=== PATIENT | female | born 1995 | race Caucasian/White ===

== ENCOUNTER 2018-02-07 19:43 | Inpatient (IN) | payer MEDICAID ==
[~2018-02-07] VITALS: Ht 157.5 cm; Wt 64.5 kg
[2018-02-07] MEDS ORDERED: NALOXONE 1 MG/ML, 2ML ONE (19:51)
[2018-02-07] MEDS ORDERED: DEXTROSE 50%, 50ML SYRINGE ONE (19:52)
[2018-02-07] MEDS ORDERED: NALOXONE 0.4 MG/ML, 1ML IVPush ONE (20:00)
[2018-02-07] MEDS ORDERED: SODIUM CHLORIDE 0.9% 1,000ML IVBOLUS ONE ×2 (20:00→22:00)
[2018-02-07] MEDS ORDERED: DEXTROSE 50%, 50ML SYRINGE IVPush ONE (20:00)
[2018-02-07 20:14] LABS: MEAN CORPUSCULAR HEMOGLOBIN 27.5 pg (27.0-34.8); MEAN CORPUSCULAR HGB CONC 31.8 g/dL (32.4-35.8); MEAN CORPUSCULAR VOLUME 86.6 fL (80-100); MEAN PLATELET VOLUME 10.8 fL (7.4-10.4); PLATELET COUNT 222 x10^3/uL (130-400); RED BLOOD COUNT 5.43 x10^6/uL (3.82-5.3); RED CELL DISTRIBUTION WIDTH 14.5 % (9.6-15.2)
[2018-02-07] MEDS ORDERED: PLEASE ENTER HEIGHT AND WEIGHT MC SCH (20:30)
[2018-02-07 20:54] LABS: MD YES
[2018-02-07 20:57] LABS: BAND#(MANUAL) 0.77 x10^3/uL; BANDS%(MANUAL) 3 % (0-7); LYMPH#(MANUAL) 1.28 x10^3/uL (1-6.1); LYMPHS% (MANUAL) 5 % (22-44); METAMYELOCYTES# (MANUAL) 0.51 x10^3/uL (0-0); METAMYELOCYTES% (MANUAL) 2 % (0-1); MONOS#(MANUAL) 1.28 x10^3/uL (0.3-2.7); MONOS% (MANUAL) 5 % (2-9); OVALOCYTES 1+; POLYCHROMASIA 1+; REACTIVE LYMPHS # (MANUAL) 0.51 x10^3/uL (0-0); REACTIVE LYMPHS % (MANUAL) 2 % (0-0); SEG#(MANUAL) 21.25 x10^3/uL (1.8-8); SEGS% (MANUAL) 83 % (42-75)
[2018-02-07 20:58] LABS: <PLATELET ESTIMATE> ADEQUATE; HYPOCHROMIA 1+; LARGE PLATELETS 1+; SMUDGE CELLS 1+
[2018-02-07 21:44] LABS: ALANINE AMINOTRANSFERASE 418 U/L (12-78); ALBUMIN 2.7 g/dL (3.4-5.0); CHLORIDE 107 mmol/L (98-107)
[2018-02-07 21:46] LABS: CALCIUM 7.5 mg/dL (8.5-10.1)
[2018-02-07 21:47] LABS: ALKALINE PHOSPHATASE 280 U/L (45-117); BILIRUBIN,TOTAL 2.1 mg/dL (0.2-1.0); CREATININE 2.59 mg/dL (0.55-1.02)
[2018-02-07 21:48] LABS: ANION GAP 9 mmol/L (5-15); TOTAL PROTEIN 7.7 g/dL (6.4-8.2)
[2018-02-07] MEDS: SODIUM CHLORIDE 0.9% 1,000 ML IV SCH (22:21)
[2018-02-07] MEDS ORDERED: ONDANSETRON ODT 4 MG PO PRN (22:30)
[2018-02-07] MEDS ORDERED: PROMETHAZINE 25 MG/ML, 1ML IM PRN (22:30)
[2018-02-07] MEDS ORDERED: ONDANSETRON 2MG/ML, 2ML IVPush PRN (22:30)
[2018-02-07] MEDS ORDERED: NALOXONE 0.4 MG/ML, 1ML IVPush PRN (22:30)
[2018-02-07] MEDS ORDERED: ACETAMINOPHEN 325 MG TABLET PO PRN (22:30)
[2018-02-08] VITALS (7 sets, daily range): BP systolic 91–130; BP diastolic 61–86
[2018-02-08] MEDS ORDERED: ENOXAPARIN 30 MG/0.3 ML SQ SCH (00:30)
[2018-02-08] MEDS: POTASSIUM CHLORIDE 20 MEQ, MAGNESIUM SULFATE 2 GM, THIAMINE 100 MG, MVI ADULT 10 ML, FO... IV SCH (00:54)
[2018-02-08] MEDS: SODIUM CHLORIDE 0.9% 1,000 ML IV SCH ×3 (03:21→16:00)
[2018-02-08 03:38] LABS: CULTURE INDICATED? YES; MICROSCOPIC INDICATED
[2018-02-08 03:45] LABS: AMPHETAMINE SCREEN, URINE Negative (Negative); BARBITURATE SCREEN, URINE Negative (Negative); BENZODIAZEPINE SCREEN, URINE Negative (Negative); CANNABINOID SCREEN, URINE Negative (Negative); COCAINE SCREEN, URINE Negative (Negative); METHADONE SCREEN, URINE Negative (Negative); OPIATE SCREEN, URINE Positive (Negative)
[2018-02-08 05:40] LABS: MEAN CORPUSCULAR HEMOGLOBIN 28.1 pg (27.0-34.8); MEAN CORPUSCULAR VOLUME 85.3 fL (80-100); MEAN PLATELET VOLUME 11.1 fL (7.4-10.4); PLATELET COUNT 168 x10^3/uL (130-400); RED BLOOD COUNT 4.82 x10^6/uL (3.82-5.3); RED CELL DISTRIBUTION WIDTH 14.7 % (9.6-15.2)
[2018-02-08 05:50] LABS: ALBUMIN 3.1 g/dL (3.4-5.0); ANION GAP 11 mmol/L (5-15); CALCIUM 7.2 mg/dL (8.5-10.1); CHLORIDE 111 mmol/L (98-107)
[2018-02-08 05:54] LABS: ALANINE AMINOTRANSFERASE 341 U/L (12-78); ALKALINE PHOSPHATASE 197 U/L (45-117); BILIRUBIN,TOTAL 1.8 mg/dL (0.2-1.0); TOTAL PROTEIN 5.9 g/dL (6.4-8.2)
[2018-02-08 06:16] LABS: BASOPHILS # (AUTO) 0.01 x10^3/uL (0-0.3); BASOPHILS % (AUTO) 0 % (0-1); EOSINOPHILS % (AUTO) 0 % (1-7); LYMPHOCYTES % (AUTO) 6 % (22-44); MD SCAN; MONOCYTES # (AUTO) 1.71 x10^3/uL (0-1.4); MONOCYTES % (AUTO) 8 % (2-9); NEUTROPHILS # (AUTO) 18.45 x10^3/uL (1.8-8.0); NEUTROPHILS % (AUTO) 86 % (42-75)
[2018-02-08] MEDS ORDERED: SODIUM CHLORIDE 0.9% 1,000 ML IV SCH (22:21)
[2018-02-09 01:19] VITALS: BP 123/83
[2018-02-09] MEDS: POTASSIUM CHLORIDE 20 MEQ, MAGNESIUM SULFATE 2 GM, THIAMINE 100 MG, MVI ADULT 10 ML, FO... IV SCH ×2 (01:23→23:09)
[2018-02-09] MEDS: ENOXAPARIN 40 MG/0.4 ML SQ SCH (01:25)
[2018-02-09 05:51] LABS: BASOPHILS # (AUTO) 0.03 x10^3/uL (0-0.3); BASOPHILS % (AUTO) 0 % (0-1); EOSINOPHILS % (AUTO) 0 % (1-7); LYMPHOCYTES # (AUTO) 1.57 x10^3/uL (1-6.1); LYMPHOCYTES % (AUTO) 12 % (22-44); MD NO; MEAN CORPUSCULAR HEMOGLOBIN 27.4 pg (27.0-34.8); MEAN CORPUSCULAR HGB CONC 32.3 g/dL (32.4-35.8); MONOCYTES # (AUTO) 1.02 x10^3/uL (0-1.4); MONOCYTES % (AUTO) 8 % (2-9); NEUTROPHILS # (AUTO) 10.27 x10^3/uL (1.8-8.0); NEUTROPHILS % (AUTO) 80 % (42-75); PLATELET COUNT 148 x10^3/uL (130-400); RED BLOOD COUNT 4.57 x10^6/uL (3.82-5.3); RED CELL DISTRIBUTION WIDTH 14.8 % (9.6-15.2)
[2018-02-09 06:03] LABS: CHLORIDE 119 mmol/L (98-107)
[2018-02-09 06:13] LABS: ALANINE AMINOTRANSFERASE 224 U/L (12-78); ALBUMIN 3.2 g/dL (3.4-5.0); ALKALINE PHOSPHATASE 173 U/L (45-117); ANION GAP 10 mmol/L (5-15); BILIRUBIN,TOTAL 1.2 mg/dL (0.2-1.0); CREATININE 1.32 mg/dL (0.55-1.02); TOTAL PROTEIN 5.9 g/dL (6.4-8.2)
[2018-02-09 07:42] VITALS: BP 114/77
[2018-02-09 12:06] LABS: THYROID STIMULATING HORMONE 2.22 mIU/L (0.358-3.740)
[2018-02-09 13:57] VITALS: BP 125/81
[2018-02-09] MEDS: LURASIDONE 20 MG TABLET PO SCH (17:24)
[2018-02-09 17:47] LABS: TROPONIN I 0.111 ng/mL (0.000-0.045)
[2018-02-09 18:32] VITALS: BP 119/77
[2018-02-09] MEDS ORDERED: TRAZ5POW PEG (21:07)
[2018-02-09] MEDS ORDERED: HYDR25PO PO (21:10)
[2018-02-09] MEDS ORDERED: TRAZ-137 PO (22:16)
[2018-02-09] MEDS ORDERED: HYDR25CA94 PO (22:17)
[2018-02-09 23:40] LABS: TROPONIN I 0.102 ng/mL (0.000-0.045)
[2018-02-10 01:19] VITALS: BP 121/82
[2018-02-10] MEDS: ENOXAPARIN 40 MG/0.4 ML SQ SCH (01:20)
[2018-02-10 06:04] LABS: TROPONIN I 0.087 ng/mL (0.000-0.045)
[2018-02-10 07:28] VITALS: BP 120/83
[2018-02-10] MEDS ORDERED: ERGOCALCIFEROL 50,000 UNIT CAPSULE PO SCH (08:00)
[2018-02-10] MEDS: CEFTRIAXONE 1,000 MG in SODIUM CHLORIDE 0.9% 50 ML IV SCH (10:27)
[2018-02-10 13:10] VITALS: BP 114/77
[2018-02-10] MEDS: LURASIDONE 20 MG TABLET PO SCH (16:56)
[2018-02-10] MEDS ORDERED: SENNA/DOCUSATE TABLET PO PRN (17:00)
[2018-02-10 20:22] VITALS: BP 121/82
[2018-02-10] MEDS: TRAZODONE 50MG TABLET PO PRN (20:23)
[2018-02-11] MEDS: ENOXAPARIN 40 MG/0.4 ML SQ SCH (00:10)
[2018-02-11] MEDS: POTASSIUM CHLORIDE 20 MEQ, MAGNESIUM SULFATE 2 GM, THIAMINE 100 MG, MVI ADULT 10 ML, FO... IV SCH (00:11)
[2018-02-11 02:30] VITALS: BP 90/56
[2018-02-11 07:00] VITALS: BP 101/66
[2018-02-11] MEDS: CEFTRIAXONE 1,000 MG in SODIUM CHLORIDE 0.9% 50 ML IV SCH (10:03)
[2018-02-11 12:50] VITALS: BP 111/72
[2018-02-11] MEDS: LURASIDONE 20 MG TABLET PO SCH (17:16)
[2018-02-11 19:27] VITALS: BP 103/61
[2018-02-11] MEDS: TRAZODONE 50MG TABLET PO PRN (21:31)
[2018-02-12] MEDS: ENOXAPARIN 40 MG/0.4 ML SQ SCH (00:30)
[2018-02-12 01:04] VITALS: BP 104/67
[2018-02-12] MEDS: POTASSIUM CHLORIDE 20 MEQ, MAGNESIUM SULFATE 2 GM, THIAMINE 100 MG, MVI ADULT 10 ML, FO... IV SCH (01:26)
[2018-02-12 05:58] LABS: BASOPHILS # (AUTO) 0.04 x10^3/uL (0-0.3); BASOPHILS % (AUTO) 1 % (0-1); EOSINOPHILS # (AUTO) 0.13 x10^3/uL (0-0.8); EOSINOPHILS % (AUTO) 2 % (1-7); LYMPHOCYTES # (AUTO) 2.34 x10^3/uL (1-6.1); LYMPHOCYTES % (AUTO) 30 % (22-44); MD NO; MEAN CORPUSCULAR HEMOGLOBIN 27.5 pg (27.0-34.8); MEAN CORPUSCULAR HGB CONC 33.3 g/dL (32.4-35.8); MEAN CORPUSCULAR VOLUME 82.7 fL (80-100); MONOCYTES # (AUTO) 0.68 x10^3/uL (0-1.4); MONOCYTES % (AUTO) 9 % (2-9); NEUTROPHILS # (AUTO) 4.53 x10^3/uL (1.8-8.0); NEUTROPHILS % (AUTO) 59 % (42-75); PLATELET COUNT 154 x10^3/uL (130-400); RED BLOOD COUNT 5.09 x10^6/uL (3.82-5.3); RED CELL DISTRIBUTION WIDTH 14.4 % (9.6-15.2)
[2018-02-12 06:11] LABS: ANION GAP 10 mmol/L (5-15); CALCIUM 7.5 mg/dL (8.5-10.1); CHLORIDE 114 mmol/L (98-107)
[2018-02-12 06:16] LABS: ALANINE AMINOTRANSFERASE 91 U/L (12-78); ALBUMIN 3.1 g/dL (3.4-5.0); ALKALINE PHOSPHATASE 140 U/L (45-117); CREATININE 0.67 mg/dL (0.55-1.02); TOTAL PROTEIN 6.3 g/dL (6.4-8.2)
[2018-02-12 07:23] VITALS: BP 118/74
[2018-02-12] MEDS ORDERED: CEFTRIAXONE PMX 1GM/50ML 50 ML IV SCH (08:30)
[2018-02-12 08:35] LABS: TROPONIN I < 0.015 ng/mL (0.000-0.045)
[2018-02-12 12:32] VITALS: BP 108/72
[2018-02-12] MEDS: LURASIDONE 20 MG TABLET PO SCH (16:31)
[2018-02-12] MEDS ORDERED: DIPHENHYDRAMINE 25 MG CAPSULE PO PRN ×2 (17:30)
[2018-02-12 18:49] VITALS: BP 107/72
[2018-02-12] MEDS: TRAZODONE 50MG TABLET PO PRN (20:27)
[2018-02-13] MEDS: ENOXAPARIN 40 MG/0.4 ML SQ SCH (00:17)
[2018-02-13 02:55] VITALS: BP 94/59
[2018-02-13 05:49] LABS: BASOPHILS # (AUTO) 0.03 x10^3/uL (0-0.3); BASOPHILS % (AUTO) 0 % (0-1); EOSINOPHILS # (AUTO) 0.17 x10^3/uL (0-0.8); EOSINOPHILS % (AUTO) 2 % (1-7); LYMPHOCYTES # (AUTO) 1.95 x10^3/uL (1-6.1); LYMPHOCYTES % (AUTO) 25 % (22-44); MD NO; MEAN CORPUSCULAR HEMOGLOBIN 27.3 pg (27.0-34.8); MEAN CORPUSCULAR HGB CONC 32.8 g/dL (32.4-35.8); MEAN CORPUSCULAR VOLUME 83.3 fL (80-100); MEAN PLATELET VOLUME 10.8 fL (7.4-10.4); MONOCYTES # (AUTO) 0.75 x10^3/uL (0-1.4); MONOCYTES % (AUTO) 10 % (2-9); NEUTROPHILS # (AUTO) 4.87 x10^3/uL (1.8-8.0); NEUTROPHILS % (AUTO) 63 % (42-75); PLATELET COUNT 169 x10^3/uL (130-400); RED BLOOD COUNT 5.18 x10^6/uL (3.82-5.3); RED CELL DISTRIBUTION WIDTH 14.2 % (9.6-15.2)
[2018-02-13 05:56] LABS: ALBUMIN 3.4 g/dL (3.4-5.0); ANION GAP 8 mmol/L (5-15); CALCIUM 8.3 mg/dL (8.5-10.1); CHLORIDE 113 mmol/L (98-107); CREATININE 0.74 mg/dL (0.55-1.02)
[2018-02-13 06:39] VITALS: BP 95/61
[2018-02-13 12:29] VITALS: BP 108/72
[2018-02-13] MEDS: LURASIDONE 20 MG TABLET PO SCH (17:23)
[2018-02-13 17:44] VITALS: BP 109/74
[2018-02-13 19:46] VITALS: BP 103/71
== END 2018-02-13 23:30 | DRG 917 ==
LOC: SUATTDRO 22:12 → ED 23:26 → EDIP 23:27 → 5SO 23:40 → 4EST 02-09 12:38 → 2N 02-13 17:37
PROVIDERS: ADMIT Hospitalist; ATTEND Hospitalist
DX: T40.1X2A Poisoning by heroin, intentional self-harm, initial encounter (principal); E43 Unspecified severe protein-calorie malnutrition; N17.0 Acute kidney failure with tubular necrosis; F11.20 Opioid dependence, uncomplicated; G93.1 Anoxic brain damage, not elsewhere classified; N39.0 Urinary tract infection, site not specified; B96.20 Unspecified Escherichia coli [E. coli] as the cause of diseases classified elsewhere; E16.2 Hypoglycemia, unspecified; D72.825 Bandemia; E83.51 Hypocalcemia; E86.0 Dehydration; E87.5 Hyperkalemia; F29 Unspecified psychosis not due to a substance or known physiological condition; F43.10 Post-traumatic stress disorder, unspecified; G40.909 Epilepsy, unspecified, not intractable, without status epilepticus; K75.9 Inflammatory liver disease, unspecified; F31.9 Bipolar disorder, unspecified; Z91.5 Personal history of self-harm; Y92.89 Other specified places as the place of occurrence of the external cause; Z68.26 Body mass index [BMI] 26.0-26.9, adult
CPT/HCPCS: 36415; 99285; J7042; 70450; 70486; 70551; 71045; 76700; 80048; 80053; 80307; 81001; 82040; 82140; 82306; 82607; 83735; 84100; 84443; 84484; 85025; 86704; 86705; 86706; 86707; 86803; 87077; 87086; 87186; 87340; 87350; 93005; 93306; 96361; 96374; 96375; G0378; J0696; J1650; J2310; J3411; J3475; J3480; 92523-GN; J7030